=== PATIENT | male | born 1945 | race Hispanic/Latino ===

== ENCOUNTER → 2017-04-12 | Outpatient (RCR) | payer OTHER | LOC: PT 04-11 09:37 | PROVIDERS: ATTEND Family Medicine | DX: S39.012A Strain of muscle, fascia and tendon of lower back, initial encounter (principal); M54.5 Low back pain ==

== ENCOUNTER → 2017-05-10 | Outpatient (RCR) | payer OTHER | LOC: PT 04-13 09:54 | PROVIDERS: ATTEND Family Medicine | DX: S39.012A Strain of muscle, fascia and tendon of lower back, initial encounter (principal) | CPT/HCPCS: 97139 ==

== ENCOUNTER 2017-06-07 15:44 | Outpatient (RCR) | payer OTHER | END 2017-06-10 | LOC: PT 15:44 | PROVIDERS: ATTEND Family Medicine | DX: S39.012A Strain of muscle, fascia and tendon of lower back, initial encounter (principal) | CPT/HCPCS: 97139 ==

== ENCOUNTER → 2019-02-04 | Outpatient (CLI) | payer MEDICARE, OTHER ==
--- NOTE | 2019-02-04 13:14 | Diagnostic Imaging Report ---
EXAMINATION: CHEST 2 VIEWS INDICATION: Shortness of breath COMPARISON: None FINDINGS: LINES/TUBES:None LUNGS:The lungs are well-inflated. No focal consolidation or pulmonary edema. PLEURA:No pleural effusion or pneumothorax. MEDIASTINUM:The cardiomediastinal silhouette appears normal in size and shape. Atherosclerotic calcifications of the thoracic aorta. BONES/SOFT TISSUES:No acute osseous injury. Mild degenerative changes of the visualized spine. ABDOMEN:No free air under the diaphragm. IMPRESSION: No focal pneumonia or pulmonary edema. Signed by: Yolanda Krishna MD on 02/04/2019 1:11 PM
== END ==
LOC: RAD 12:31
PROVIDERS: ATTEND Internal Medicine
DX: J18.9 Pneumonia, unspecified organism (principal)
CPT/HCPCS: 71046

== ENCOUNTER → 2019-08-22 | Outpatient (CLI) | payer MEDICARE, OTHER ==
[~2019-08-22] MED LIST: ASPIRIN EC81 MG PO; ATORVASTATIN CA20 MG PO; CILOSTAZOL100 MG PO; GLIPIZIDE5 MG PO; LANTUS 3ML100 UNITS/; METOPROLOL TART25 MG PO; NIFEDIPINE10 MG PO; NOVOLOG MI100 UNIT/1 SQ; SUCRALFATE1 GM PO; TERAZOSIN HCL5 MG PO
== END ==
LOC: DX 08:34
PROVIDERS: ATTEND Internal Medicine
DX: M81.0 Age-related osteoporosis without current pathological fracture (principal)
CPT/HCPCS: 77080